=== PATIENT | male | born 1965 ===

== ENCOUNTER 2017-06-15 23:00 | Emergency (ER) | payer OTHER ==
[~2017-06-15] VITALS: Ht 182.9 cm; Wt 119.3 kg
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
[2017-06-15] MEDS ORDERED: ONDANSETRON ODT 4 MG TAB.RAPDIS PO ONE (23:45)
[2017-06-15 23:48] VITALS: BP 152/77
--- NOTE | 2017-06-16 00:08 | RAD ---
EXAM: 1. CT HEAD WITHOUT CONTRAST. 2. CT CERVICAL SPINE WITHOUT CONTRAST. HISTORY: Fall, loss of consciousness. TECHNIQUE: Computed tomography of the head and cervical spine was performed without intravenous contrast. COMPARISON: None. FINDINGS: There is no intracranial hemorrhage. [place]-white differentiation is preserved. The ventricles are normal in size and position. There is mild mucosal thickening in the ethmoid air cells and right maxillary sinus. The orbits are unremarkable. The temporal bones are unremarkable. Changes of left temporal craniotomy are noted. There are no suspicious calvarial lesions. A mild cervical levocurvature may be positional. There is a slight retrolisthesis at C5-6. The craniocervical junction is unremarkable. Deformity at C5 may represent a chronic healed fracture or be developmental. Degenerative disc disease is moderate to severe at C5-6 and mild more superiorly. 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 There is no prevertebral soft tissue swelling. At C2-3, there is a small posterior disc bulge. Uncovertebral osteoarthritis is mild on the right. Right facet osteoarthritis is moderate. There is mild right neural foraminal narrowing. At C3-4, there is a small posterior disc bulge. Uncovertebral osteoarthritis is mild bilaterally. Facet osteoarthritis is mild on the right. There is no clear stenosis. At C4-5, there is a small posterior disc bulge. There is no clear stenosis. At C5-6, there is a moderate posterior disc-osteophyte complex. Uncovertebral osteoarthritis is moderate bilaterally. Neural foraminal stenosis is mild on the left and moderate on the right. Central canal stenosis is at least mild with abutment of the anterior cord. At C6-7, there is no significant stenosis. IMPRESSION: 1. Status post left temporal craniotomy. No acute intracranial findings. 2. No acute cervical fracture. 3. Slight retrolisthesis at C5-6. There is at least mild central canal stenosis and moderate right neural foraminal stenosis at this level. 4. Additional neural foraminal stenosis is mild as detailed above. 5. Degenerative disc disease is moderate to severe at C5-6 and mild more superiorly. *One or more of the following individualized dose reduction techniques were utilized for this examination: 1. Automated exposure control. 2. Adjustment of the mA and/or kV according to patient size. 3. Use of iterative reconstruction technique. Electronically signed by: Ronny Christy MD (06/16/2017 12:05 AM) [facility]
== END 2017-06-16 00:23 | disposition left against medical advice (07) ==
LOC: ER 23:00 → EEVIPCON 23:00 → ER 06-16 00:23
DX: S06.9X1A Unspecified intracranial injury with loss of consciousness of 30 minutes or less, initial encounter (principal); G40.909 Epilepsy, unspecified, not intractable, without status epilepticus; F17.210 Nicotine dependence, cigarettes, uncomplicated; W18.09XA Striking against other object with subsequent fall, initial encounter; Y93.89 Activity, other specified; Y99.8 Other external cause status; Y92.148 Other place in prison as the place of occurrence of the external cause
CPT/HCPCS: 70450; 72125; 99284; Q0162